=== PATIENT | female | born 1985 | race Caucasian/White ===

== ENCOUNTER → 2020-07-28 | Outpatient (CLI) | payer OTHER ==
[~2020-07-28] MED LIST: OMNIPAQUE 350 MG/ML, 100ML BOTTLE ONE
[2020-07-28 15:22] LABS: CREATININE 0.77 mg/dL (0.55-1.02)
== END | disposition home or self-care (01) ==
LOC: RAD 14:37
PROVIDERS: ATTEND Physician Assistant
DX: Z11.3 Encounter for screening for infections with a predominantly sexual mode of transmission (principal); N83.292 Other ovarian cyst, left side; R10.31 Right lower quadrant pain; R31.29 Other microscopic hematuria; R23.4 Changes in skin texture
CPT/HCPCS: 36415; 74177; 82565; Q9967